=== PATIENT | male | born 1970 | race Caucasian/White ===

== ENCOUNTER 2018-12-30 20:43 | Inpatient (IN) | payer MEDICAID, OTHER ==
[~2018-12-30] VITALS: Ht 190.5 cm; Wt 116.0 kg
[2018-12-31 11:13] VITALS: BP 132/82
== END 2018-12-31 13:05 | disposition home or self-care (01) | DRG 915 ==
LOC: ED 21:55 → EDIP 22:27 → 4WST 23:02
PROVIDERS: ADMIT Family Medicine; ATTEND Family Medicine
DX: T78.2XXA Anaphylactic shock, unspecified, initial encounter (principal); J96.01 Acute respiratory failure with hypoxia; J98.01 Acute bronchospasm; T63.461A Toxic effect of venom of wasps, accidental (unintentional), initial encounter; F15.11 Other stimulant abuse, in remission; F12.90 Cannabis use, unspecified, uncomplicated; Z80.8 Family history of malignant neoplasm of other organs or systems; Z82.49 Family history of ischemic heart disease and other diseases of the circulatory system; Y92.89 Other specified places as the place of occurrence of the external cause
CPT/HCPCS: 36415; 99291; J3490; 80053; 84484; 85025; 93005; 96372; 96374; 96375; G0378; J0171; J1650; J2405; J2930; J7030